=== PATIENT | female | born 1980 | race Caucasian/White ===

== ENCOUNTER 2020-08-17 13:55 | Outpatient (CLI) | payer OTHER, SELFPAY ==
--- NOTE | ~2020-08-17 | MM_ITS ---
EXAMINATION: MM screening [facility] w [facility] HISTORY: Screening TECHNIQUE: Craniocaudal and mediolateral oblique 3-D tomosynthesis images were obtained and synthetic 2-D images were generated. CAD analysis was submitted and interpreted. COMPARISON: 08/11/2019 BREAST PARENCHYMAL COMPOSITION: There are scattered areas of fibroglandular density. FINDINGS: There is no evidence of suspicious mass, calcification, or architectural distortion to sugg est malignancy in either breast. There has been no suspicious interval change. IMPRESSION: 1. No mammographic evidence of malignancy. 2. Recommend routine screening mammography in one year. BI-RADS Category 1: Negative Reviewed, dictated and finalized at location A. 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
== END 2020-08-17 13:56 | disposition home or self-care (01) ==
LOC: ANHIMG 14:03
PROVIDERS: PCP Family Medicine; Visit Provider Advanced Practice Midwife
DX: Z12.31 Encounter for screening mammogram for malignant neoplasm of breast (principal)
CPT/HCPCS: 77063; 77067

== ENCOUNTER 2021-10-31 14:06 | Outpatient (CLI) | payer OTHER, SELFPAY ==
--- NOTE | ~2021-10-31 | MM_ITS ---
EXAMINATION: MM screening [facility] BI w salima HISTORY: Screening TECHNIQUE: Craniocaudal and mediolateral oblique 3-D tomosynthesis images were obtained and synthetic 2-D images were generated. CAD analysis was submitted and interpreted. COMPARISON: Comparison to multiple prior studies sequentially, with oldest reviewed study dated 07/24. BREAST PARENCHYMAL COMPOSITION: There are scattered areas of fibroglandular density. FINDINGS: There is no evidence of suspicious mass, calcification, or architectural distortion to sugg est malignancy in either breast. There has been no suspicious interval change. IMPRESSION: 1. No mammographic evidence of malignancy. 2. Recommend routine screening mammography in one year. BI-RADS Category 1: Negative Reviewed, dictated and finalized at location A. KDOWN MAN
== END 2021-10-31 14:07 | disposition home or self-care (01) ==
PROVIDERS: PCP Family Medicine; Visit Provider Advanced Practice Midwife
DX: Z12.31 Encounter for screening mammogram for malignant neoplasm of breast (principal)
CPT/HCPCS: 77063; 77067

== ENCOUNTER 2022-07-15 14:25 | Emergency (ER) | payer BC, SELFPAY ==
[2022-07-15 14:37] VITALS: BP 129/91; PULSE 107; RESP 16; TEMP 36.6; O2SAT 99
--- NOTE | 2022-07-15 14:52 | ED.SKABFB ---
HPI - Skin/Abscess/Foreign Bdy General Chief complaint: Skin/Abscess/Foreign Body Stated complaint: rash Time Seen by Provider: 07/15/22 14:52 Source: patient Mode of arrival: ambulatory Limitations: no limitations History of Present Illness HPI narrative: 42-year-old female presented for complaint of itching all over her body worsening for 2 days. No apparent rash. She endorses changing laundry detergent however she states it was a hypoallergenic detergent. She denies lip, tongue or throat swelling, shortness of breath or wheezing. Has not taken anything for symptoms. Related Data Home Medications Medication Instructions Recorded Confirmed norethindrone (contraceptive) 0.35 0.35 mg PO DAILY 08/29/20 09/12/21 mg tablet Allergies Allergy/AdvReac Type Severity Reaction Status Date / Time No Known Allergies Allergy Verified 07/15/22 14:35 Review of Systems Review of Systems: CONSTITUTIONAL: Denies body aches, fever, chills, or sweats. EYES: Denies visual changes, redness, or discharge. ENT: Denies rhinorrhea, congestion CARDIOVASCULAR: Denies chest pain, palpitations, or edema. RESPIRATORY: Denies cough or dyspnea. GASTROINTESTINAL: Denies abdominal pain, nausea, vomiting, or diarrhea. SKIN: reports itching MUSCULOSKELETAL: Denies back pain, joint pain, or myalgia. NEUROLOGIC: Denies headache, numbness, tingling, or weakness. [facility] Past Medical History Medical History Hypertension Weight gain (~03/2019) Surgical History Surgical History [place] teeth extracted Family History Family History Father Family history of hypercholesterolemia Family history of coronary artery disease Grandparent Acute myocardial infarction Cerebrovascular accident Family history of malignant neoplasm of breast in first degree relative Mother Acute myocardial infarction Social History Social History Smoking status: Former smoker Second hand tobacco smoke exposure: No Smoking end date: 09/23/16 Alcohol intake: current Alcohol use details: consumes 3 beers socially Substance use: never Substance use type: does not use Gender identity (if verbalized by the patient): Female Comments At time of signature, I have reviewed and agree with nursing past medical, surgical, social and family history unless otherwise noted. Please see nursing chart for further information. There is no relevant family history pertinent to the presenting complaint Exam Narrative: GENERAL: Well-appearing EYES: conjunctivae clear, and EOMI. ENT: Mucous membranes moist. Oropharynx without edema, erythema or lesions. NECK: Supple. No lymphadenopathy CHEST: Clear to auscultation. HEART: Regular rate and rhythm. SKIN: Warm, dry. No apparent rash, lesions or urticaria to body. Evidence of scratching arms. NEURO: Alert and oriented x3. Course Course Emergency Course: Patient is aware of diagnosis, understands and agrees to treatment plan. Anticipatory guidance given. Patient agrees to follow-up as directed and is aware of reasons to seek care at the emergency department. Portions of this record may have been created with voice recognition software Level of Care: Express Care Visit Vital Signs Vital signs: Vital Signs Temperature 97.8 F 07/15/22 14:37 Pulse Rate 107 H 07/15/22 14:37 Respiratory Rate 16 07/15/22 14:37 Blood Pressure 129/91 H 07/15/22 14:37 Pulse Oximetry 99 07/15/22 14:37 Oxygen Delivery Room Air 07/15/22 14:37 Temperature 97.8 F 07/15/22 14:37 Pulse Rate 107 H 07/15/22 14:37 Respiratory Rate 16 07/15/22 14:37 Blood Pressure 129/91 H 07/15/22 14:37 Pulse Oximetry 99 07/15/22 14:37 Oxygen Delivery Room Air 07/15/22 14:37 Review
== END 2022-07-15 15:06 | disposition home or self-care (01) ==
PROVIDERS: Emergency Provider Nurse Practitioner Family
DX: L29.9 Pruritus, unspecified (principal); I10 Essential (primary) hypertension
CPT/HCPCS: 99213; G0463

== ENCOUNTER 2022-10-15 09:42 | Outpatient (CLI) | payer BC, SELFPAY ==
[2022-10-15 10:14] LABS: Basophils Percent Auto 0.7 % (0.2-1.2); Eosinophils Absolute Auto 0.1 K/mm3 (0-0.3); Eosinophils Percent Auto 1.6 % (0-4.4); Hematocrit 48.4 % (37.0-47.0); Hemoglobin 15.2 g/dL (12.0-15.0); Immature Granulocyte Absolute 0.02 K/mm3 (0.00-0.031); Immature Granulocyte Percent A 0.4 % (0-0.5); Immature Platelet Fraction Pct 6.2 % (0.9-11.2); Lymphocytes Absolute Auto 1.33 K/mm3 (0.9-3.2); Mean Corpuscular HGB Conc 31.4 g/dl (32-36); Mean Corpuscular Volume 101.9 fl (80-100); Mean Platelet Volume 10.7 fl (7.4-10.4); Monocytes Absolute Auto 0.3 K/mm3 (0.1-0.6); Monocytes Percent Auto 5.6 % (2.6-8.5); Neutrophils Absolute Auto 3.8 K/mm3 (1.3-6.7); Neutrophils Percent Auto 67.7 % (45.5-73.1); Platelet Count Result 157 k/mm3 (150-375); Red Blood Count 4.75 M/mm3 (4.2-5.4); Red Cell Distribution Width 13.2 % (11.5-14.5); White Blood Count 5.6 K/mm3 (4.5-10.0)
[2022-10-15 10:23] LABS: Chloride 104 mmol/L (98-107)
[2022-10-15 10:24] LABS: Alanine Aminotransferase 20 U/L (6-35); Albumin Level 4.5 g/dL (3.5-5.1); Alkaline Phosphatase 59 U/L (38-126); Anion Gap 6 mmol/L (8-16); Aspartate Amino Transferase 22 U/L (14-36); Bilirubin,Total 0.6 mg/dL (0.2-1.3); Blood Urea Nitrogen 9 mg/dL (7-17); Calcium 8.6 mg/dL (8.4-10.2); Carbon Dioxide 22 mmol/L (22-30); Cholesterol 213 mg/dL (0-200); Estimated Glomerular Filt Rate > 60; Glucose 90 mg/dL (65-110); HDL Direct 58 mg/dL; Potassium 3.9 mmol/L (3.4-5.0); Sodium 132 mmol/L (137-145); Triglycerides 133 mg/dL (<150)
[2022-10-15 10:28] LABS: INR 0.9; Prothrombin Time 11.8 Seconds (11.1-14.7)
[2022-10-15 10:35] LABS: LDL Cholesterol Direct 116 mg/dL
[2022-10-15 11:03] LABS: Free T4 Free Thyroxine 0.94 ng/mL (0.78-2.19)
== END 2022-10-15 09:43 | disposition home or self-care (01) ==
LOC: ANHLAB 09:44
PROVIDERS: PCP Family Medicine; Visit Provider Physician Assistant Medical
DX: Z00.00 Encounter for general adult medical examination without abnormal findings (principal); R53.83 Other fatigue; E78.2 Mixed hyperlipidemia; D64.9 Anemia, unspecified
CPT/HCPCS: 36415; 80053; 80061; 82607; 82746; 84439; 84443; 85025; 85055; 85610

== ENCOUNTER → 2022-11-15 13:37 | Outpatient (CLI) | payer BC, SELFPAY ==
--- NOTE | ~2022-11-15 | MM_ITS ---
EXAMINATION: MM screening [facility] w [facility] HISTORY: Screening mammogram TECHNIQUE: Craniocaudal and mediolateral oblique 3-D tomosynthesis images were obtained and synthetic 2-D images were generated. CAD analysis was submitted and interpreted. COMPARISON: October 31, 2021, August 17, 2020, August 11, 2019 bilateral screening mammogram exam inations BREAST PARENCHYMAL COMPOSITION: There are scattered areas of fibroglandular density. FINDINGS: There is no evidence of suspicious mass, calcification, or architectural distortion to sugg est malignancy in either breast. There has been no suspicious interval change. IMPRESSION: 1. No mammographic evidence of malignancy. 2. Recommend routine screening mammography in one year. BI-RADS Category 1: Negative Reviewed, dictated and finalized at location A. OR ESTIMATOR
== END ==
PROVIDERS: PCP Obstetrics & Gynecology; Visit Provider Obstetrics & Gynecology
DX: Z12.31 Encounter for screening mammogram for malignant neoplasm of breast (principal)
CPT/HCPCS: 77063; 77067

== ENCOUNTER 2023-11-22 15:46 | Outpatient (CLI) | payer BC, SELFPAY ==
--- NOTE | ~2023-11-22 | XR_ITS ---
EXAMINATION: XR humerus LT DATE: 11/22/2023 16:03 INDICATION: Pain in arm, unspecified. TECHNIQUE: 2 views of left humerus on 4 radiographs were obtained. COMPARISON: None. FINDINGS: Bone alignment is normal. No fracture. There is mild acromioclavicular joint osteoarthritis . No elbow joint effusion. IMPRESSION: 1. Mild left acromioclavicular joint osteoarthritis. Reviewed, dictated and finalized at location A. 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
== END 2023-11-22 15:47 ==
LOC: MICIMG 15:47
PROVIDERS: PCP Physician Assistant; Visit Provider Physician Assistant
DX: M19.012 Primary osteoarthritis, left shoulder (principal)
CPT/HCPCS: 73060

== ENCOUNTER 2024-01-24 12:36 | Outpatient (CLI) | payer BC, SELFPAY ==
--- NOTE | ~2024-01-24 | MM_ITS ---
EXAMINATION: MM screening [facility] w [facility] HISTORY: Screening mammogram TECHNIQUE: Craniocaudal and mediolateral oblique 3-D tomosynthesis images were obtained and synthetic 2-D images were generated. CAD analysis was submitted and interpreted. COMPARISON: November 15, 2022, October 31, 2021 bilateral screening mammogram examinations BREAST PARENCHYMAL COMPOSITION: The breasts are almost entirely fatty. FINDINGS: There is no evidence of suspicious mass, calcification, or architectural distortion to sugg est malignancy in either breast. There has been no suspicious interval change. IMPRESSION: 1. No mammographic evidence of malignancy. 2. Recommend routine screening mammography in one year. BI-RADS Category 1: Negative Reviewed, dictated and finalized at location A.
== END 2024-01-24 12:37 ==
PROVIDERS: PCP Obstetrics & Gynecology; Visit Provider Obstetrics & Gynecology
DX: Z12.31 Encounter for screening mammogram for malignant neoplasm of breast (principal)
CPT/HCPCS: 77063; 77067

== ENCOUNTER 2025-03-29 10:37 | Outpatient (CLI) | payer BC, SELFPAY ==
--- NOTE | ~2025-03-29 | MM_ITS ---
EXAMINATION: MM screening sherrell BI w salima HISTORY: Screening TECHNIQUE: Craniocaudal and mediolateral oblique 3-D tomosynthesis images were obtained and synthetic 2-D images were generated. CAD analysis was submitted and interpreted. COMPARISON: Comparison to multiple prior studies sequentially, with oldest reviewed study dated 07/24. BREAST PARENCHYMAL COMPOSITION: Not dense: There are scattered areas of fibroglandular density. FINDINGS: There is a developing focal asymmetry medially in the right breast on CC view only. The lef t breast is stable without evidence for malignancy. IMPRESSION: 1. Developing focal right breast asymmetry medially, middle third, on CC view. 2. Additional mammographic views and possible breast ultrasound are recommended. BI-RADS Category 0: Incomplete: Needs additional imaging evaluation. Reviewed, dictated and finalized at location A. IMPRESSION: 1. Developing focal right breast asymmetry medially, middle third, on CC view. 2. Additional mammographic views and possible breast ultrasound are recommended . BI-RADS Category 0: Incomplete: Needs additional imaging evaluation.
--- OUTSIDE RECORDS SUMMARY | 2025-03-29 10:51 | XMS_ITS | Data Portability ---
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 Patient will come back in a year unless there are new symptoms. [email or web address] Not available 03/06/2024 14:01:35 Plan of Treatment Reminders Order Date Submit Date Provider Last Modified By Organization Details Last Modified Time Details Appointments [facility]AN-EST 2024 09:15A M HIPOLITO ROJAS NP Not available Not available Not available Lab test, urine 2024 025 [email or web address], [address], [place], [address], 02/17/2025 09:44:09 hormone panel, serum or plasma 2024 025 ROBYN [facility] (Lab), [address], [place], [address], 03/16/2025 04:01:13 25-hydrox yvitamin D2 + 25-hydrox yvitamin D3, QN, serum or plasma [email or web address] (Lab), [address], [place], [address], 02/26/2025 16:46:02 TSH, serum or plasma 2024 025 [facility] (Lab), [address] [facility], [place], [address], 03/16/2025 04:01:13 CBC w/ auto diff [address] (Lab), [address] [facility], [place], [address], 02/26/2025 16:46:03 vitamin B12 + folate, serum or blood [address] (Lab), [address] [facility], [place], [address], 02/26/2025 16:46:03 Referral None recorded. Procedures None recorded. Surgeries None recorded. Imaging None recorded. Medication Orders Mirena 21 mcg/24 hr (up to 8 years) 52 mg intrauter ine device 2024 025 [email or web address] Not available 02/17/2025 20:04:23 norethind nixon (contrace ptive) 0.35 mg tablet 2023 025 [id number], [address] [facility], [place], [place], [id number], 02/17/2025 09:59:34 Patient TargetsNo targets recorded. Patient InstructionsNo instructions recorded. Reason for Referral None Reported. 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 Elect francia york by Perez Aguilera MD on 2023 at 1:54 PM ----- ----- ----- ----- ----- ----- ----- ----- ----- ----- ----- ----- ----- ----- ----- ----- ----- ---- HPV RESUL TS: HPV mRNA E6/E7 : No HPV mRNA Detec ana m NOTE: This high risk HPV mRNA assay detec ts fourt een high- risk HPV types (16, 18, 31, 33, 35, 39, 45, 51, 52, 56, 58, 59, 66, 68) witho ut diffe renti ation . COMME NT: This speci men was revie wed by a Cytot echno logis t and/o r Patho logis t (as indic ated in this repor t) after evalu ation using the Thinp rep Imagi ng Syste m. CLINI SHONDA INFOR MATIO N: Menst rual Statu s: LMP (if appli cable ): Clini shonda Histo ry/Pr eviou s Pap: Type of Neopl preeti (if appli cable ): Signi fican t Clini shonda Findi ngs: Other Histo ry: Hormo rubi (if appli cable ): SUGGE STED FOLLO W-UP: Follo w up as warra nted, based on curre nt guide lines and indiv idual patie nt consi derat ions. Not Available [facility] (Lab) [address], [place], [address], 03/11/2024 14:58:24 04/13/20 24 04/15/2024 CERVI X/END OCERV IX cervical histology Negati ve normal Not Available [facility] ([facility]) [address] , [place], [address], 04/15/2024 12:40:11 04/13/20 24 04/15/2024 CERVI X/END OCERV IX endocervical brushing histology Negati ve normal Not Available [facility] ([facility]) [address] , [place], [address], 04/15/2024 12:40:11 04/13/20 24 04/15/2024 CERVI X/END OCERV IX results (B1) CERVI X GROSS ING INFOR MATIO N: Recei geo in forma shweta on a soft biops y brush is a 0.4 cm aggre gate of clear -to-m ilky mucoi d/fib rinou s mater ial. Speci men is filte red and total ly submi tted. B1 DIAGN OSIS: Benig n ectoc ervic al tissu e. Trans forma tion zone mucos a not prese nt. No intra epith elial lesio n. UNSP ABNOR MAL CYTOL OG FINDI NGS IN SPECM N FROM CERVI X UTERI (R87. 619) (A1) ENDOC ERVIX GROSS ING INFOR MATIO N: Recei geo in forma shweta on a soft ecc brush is a 0.4 cm [address] gate of pink- tinge d mucoi d/fib rinou s mater ial. Speci men is filte red and total ly submi tted. A1 DIAGN OSIS: Scant tiny strip s of benig n ectoc ervic al tissu e. Trans forma tion zone mucos a not prese nt. No intra epith elial lesio n in this sampl ing. UNSP ABNOR MAL CYTOL OG FINDI NGS IN SPECM N FROM CERVI X UTERI (R87. 619) Not Available [facility] ([facility]) [address], [place], [address], 04/15/2024 12:40:11 04/20/20 24 04/20/2024 DHEA SULFA TE DHEA-sulfate 165 ug/dL Femal e Range s Age(y ) Range (ug/d L) 10-15 34-28 0 15-20 65-36 8 20-25 148-4 07 25-35 99-34 0 35-45 61-33 7 45-55 35-25 6 55-65 19-20 5 65-75 9-246 > 75 12-15 4 Not Available [facility] (Lab) [address] [facility], [place], [address], 04/26/2024 11:48:32 04/20/20 24 04/20/2024 PROGE STERO NE progesterone 0.23 NG/mL This assay was perfo rmed using [employer] ratio n reage nts and test kits. Value s obtai puma with other assay metho ds or kits canno t be used inter morales eably . Femal e Proge stero ne Range s: Folli cular phasE 0.06- 0.89 ng/mL Ovula tion phasE 0.12- 12.00 ng/mL Lutea l phasE 1.83- 23.90 ng/mL Postm enopa usal <0.05 -0.13 ng/mL Healt hy Pregn ant Women 1st Trime ster 11.0- 44.30 2nd Trime ster 25.40 -83.3 0 3rd Trime ster 58.70 -214. 00 Not Available [facility] (Lab) [address] [facility], [place], [address], 04/26/2024 11:48:33 04/20/20 24 04/20/2024 PROLA CTIN prolactin, total 14.10 NG/mL 4.79-2 3.30 This assay was perfo rmed using [employer] reage nts and test kits. Value s obtai puma with other assay metho ds or kits canno t be used inter [facility] . Not Available [facility] (Lab) [address] [place], [address], 04/26/2024 11:48:33 04/20/20 24 04/20/2024 FSH, LH, ESTRA DIOL estradiol 44.5 pg/mL This assay was perfo rmed using [employer] reage nts and test kits. Value s obtai puma with other assay metho ds or kits canno t be used inter [facility] . Femal e Estra diol Range s: Folli cular phasE 12.4- 233 pg/mL Ovula tion phasE 41.0- 398 pg/mL Lutea l phasE 22.3- 341 pg/mL Postm enopa usal <5-13 8 pg/mL Healt hy Pregn ant Women 1st Trime ster 154-3 243 pg/mL 2nd Trime ster 1561- 87661 pg/mL 3rd Trime ster 8525- >3000 0 pg/mL Not Available [facility] (Lab) [address] [place], [address], 04/26/2024 11:48:34 04/20/20 24 04/20/2024 FSH, LH, ESTRA DIOL FSH 15.1 mIU/m L This assay was perfo rmed using [employer] reage nts and test kits. Value s obtai puma with other assay metho ds or kits canno t be used inter [facility] . Femal es Folli cular : 3.5-1 2.5 mIU/m L Ovula tion: 4.7-2 1.5 mIU/m L Lutea l: 1.7-7 .7 mIU/m L Postm enopa use: 25.8- 134.8 mIU/m L Not Available [facility] (Lab) [address] [place], [address], 04/26/2024 11:48:34 04/20/20 24 04/20/2024 FSH, LH, ESTRA DIOL LH 7.6 mIU/m L This assay was perfo rmed using [employer] reage nts and test kits. Value s obtai puma with other assay metho ds or kits canno t be used inter morales eably . Femal es Mid-F ollic ular: 2.4-1 2.6 mIU/m L Mid-C ycle: 14.0- 95.6 mIU/m L Mid-L uteal : 1.0-1 1.4 mIU/m L Postm enopa use: 7.7-5 8.5 mIU/m L Not Available [facility] (Lab) [address] [facility], [place], [address], 04/26/2024 11:48:34 04/20/20 24 04/20/2024 TSH, REFLE X FREE T4 TSH 3.22 uIU/m L 0.30-5 .33 Not Available [facility] (Lab) [address] [facility], [place], [address], 04/26/2024 11:48:34 04/20/20 24 04/20/2024 HUMAN SEX HORMO NE JAMES NG GLOBU SHWETA sex hormone binding globulin 35.1 nmole s/L 18.2-1 35.5 Not Available [facility] (Lab) [address] [place], [address], 04/26/2024 11:48:34 04/20/20 24 04/20/2024 TESTO STERO NE, TOTAL AND FREE, SERUM (LC-M S/MS) testosterone , total 18 NG/dL 2-45 For addit ional marichuy baldwin e refer to http: //gail cortes.que stdia gnost ics.c om/fa q/ Total Testo stero neLCM SMSFA Q165 (This link is being provi ded for festus myers/ educa afia l purpo ses only. ) This test was devel oped and its mayda tical perfo rmanc e chary cteri stics have been deter mined by [employer] [place]. It has not been clear ed or appro geo by the U.S. Food and Drug Admin istra tion. This assay has been valid ated pursu ant to the CLIA regul ation s and is used for clini shonda purpo ses. Not Available [facility] (Lab) [address] [facility], [place], [address], 04/26/2024 11:48:35 04/20/20 24 04/20/2024 TESTO STERO NE, TOTAL AND FREE, SERUM (LC-M S/MS) testosterone , free 2.6 pg/mL 0.1-6. 4 This test was devel oped and its mayda tical perfo rmanc e chary cteri stics have been deter mined by [employer] [place]. It has not been clear ed or appro geo by the U.S. Food and Drug Admin istra tion. This assay has been valid ated pursu ant to the CLIA regul ation s and is used for clini shonda purpo ses. Perfo rming Organ izati on Infor matio n: Site ID: AMD Name: [employer] Steve ls Loyalisi ginaolesya Addre ss: [id number] [facility] [employer] [place], [place] Direc tor: Kathia Guy MD PhD Not Available [facility] (Lab) [address] [facility], [place], [address], 04/26/2024 11:48:35 02/18/20 25 02/17/2025 pregn ko test, urine HCG negati ve Not Available [address] [place], [address], 02/17/2025 09:44:02 Result Notes None recorded. Problems Name Problem SNOMED Code Status Onset Date Resolution Date Notes Provider Name and Address Organization Details Recorded Time History of abnormal cervical Papanico laou smear 278314479 Completed 201909/20/20212012 lgsil/ colpo cin3 Shwetha ward, [facility] 16:45:55 Hypothyr oidism 41891154 Active 2019 Rita Streeter [facility], [facility] 0 17:36:10 Genital warts 995897540 Active 2019 Rita Streeter [facility], [facility] 0 17:36:27 Urinary tract infectio us disease 07640403 Completed 201209/20/2021 Urinary tract infectio n, site not specifie d;Practi ce ID: 0001 [facility] 16:45:43 Family planning surveill ance Completed 201309/20/2021 Surveill ance of other contrace ptive method;P ractice ID: 0001 [facility] 16:45:22 Speciali zed medical examinat ion Completed 201309/20/2021 Routine gynecolo gical examinat ion;Prac malissa ID: 0001 [facility] 16:45:40 Speciali zed medical examinat ion Completed 201309/20/2021 Other specifie d chlamydi al diseases ;Practic e ID: 0001 [facility] 16:45:41 Venereal disease screenin g Completed 201309/20/2021 Screenin g examinat ion for venereal disease; Practice ID: 0001 [facility] 16:45:01 Screenin g for malignan t neoplasm of cervix Completed 201309/20/2021 Pap Smear;Pr actice ID: 0001 Shwetha ward [facility] 16:45:04 Abnormal cervical Papanico laou smear 038565634 Completed 201409/20/2021 Other abnormal papanico laou smear of cervix and cervical HPV;Prac malissa ID: 0001 Shwetha ward [facility] 16:45:[address] Concept Completed 201509/20/2021 Encntr for gel coater exam (general ) (routine ) w/o abn findings ;Practic e ID: 0001 Shwetha ward [facility] 16:45:18 Pregnanc y test negative 237085918 Completed 201509/20/2021 Encounte r for pregnanc y test, result negative ;Practic e ID: 0001 [facility] 16:45:10 Atypical squamous cells of undeterm ined signific ance on cervical Papanico laou smear 552235619 Active 2016 [facility] 16:45:33 Benign neoplasm of vulva 95398481 Completed 201609/20/2021 Benign neoplasm of vulva;Pr actice ID: 0001 Shwetha ward [facility] 16:45:45 Actinic keratosi s 306234534 Completed 201609/20/2021 Actinic keratosi s;Practi ce ID: 0001 Shwetha Neumann [facility] 16:45:05 Screenin g for malignan t neoplasm of rectum Completed 201809/20/2021 Encounte r for screenin g for malignan t neoplasm of rectum;P ractice ID: 0001 Shwetha ward [facility] 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 16:44:53 Body mass index 25-29 - overweig ht 012860908 Completed 201809/20/2021 Body mass index (BMI) 29.0-29. 9, adult;Re corded Elsewher e: No Locat ion: [facility] S ource: EHR Hoop Punch Operator Helper negin: N Practi ce ID: 0001 Dustin lable Time: 02:30:00 PM Shwetha ward [facility] 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 16:45:48 Ill-defi puma intestin al infectio n Completed 201009/20/2021 No Show Fee;Loida malissa ID: 0001 Shwetha ward, [facility] 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 16:44:59 Cytologi c finding 606085676 Completed 201209/20/2021 Papanico laou smear of cervix with low grade squamous intraepi thelial lesion (LGSIL); Recorded Elsewher e: No Locat ion: [facility] S ource: EHR Hoop Punch Operator Helper negin: N Practi ce ID: 0001 Dustin lable Time: 02:00:00 PM [facility] 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 16:45:53 Hyperten sive disorder 50754649 Completed 201809/20/2021 Essentia l (primary ) hyperten jcarlos;Rec orded Elsewher e: No [facility]: EHR Hoop Punch Operator Helper negin: N Practi ce ID: 0001 Dustin lable Time: 02:30:00 PM Shwetha ward [facility] 16:45:20 Conducti on disorder of the heart 27498304 Completed 201309/20/2021 Bradycar raymundo;Andrew rded Elsewher e: No [facility] S [facility]ce: EHR Hoop Punch Operator Helper negin: N Practi ce ID: 0001 Dustin lable Time: 02:55:10 PM Shwetha Neumann [facility] 16:45:36 Syphilis test finding 614796357 Completed 201509/20/2021 Encntr screen for infectio ns w sexl mode of transmis s;Record ed Elsewher e: No [facility] S [facility]: EHR Hoop Punch Operator Helper negin: N Practi ce ID: 0001 Dustin lable Time: 11:30:00 AM Shwetha ward [facility] 16:45:[address] Concept Completed 201809/20/2021 Encntr for general adult medical exam w/o abnormal findings ;Recorde d Elsewher e: No Locat ion: Susan dacosta [facility] S ource: EHR Hoop Punch Operator Helper negin: N Practi ce ID: 0001 Dustin lable Time: 02:30:00 PM Shwetha ward, [facility] 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 16:45:49 Problem Notes None recorded. Procedures Surgical History Date Name Laterality Status Provider Name and Address Organization Details Recorded Time 02/18/20 25 IUD Insertion completed HIPOLITO ROJAS NP [address], [place], [address], [facility] 02/17/2025 09:56:26 04/14/20 24 [facility] 03/29/2025 10:24:58 04/10/20 24 Colposcopy completed ORIN LIZARRAGA MD [address], [place], [address], [facility] 04/10/2024 16:18:06 03/06/20 24 Date of Last Pap Smear completed Bonnie Latif [facility] 02/16/2025 15:08:04 10/15/19 23 Colposcopy completed Nadeen Wilson MD [address], [place], [address], [facility] 10/15/2022 16:22:07 07/05/20 17 biopsy of vulva completed Rita Streeter [facility] 08/15/2020 17:45:25 12/16/19 13 Colposcopy completed Rita Streeter [facility] 08/15/2020 17:45:08 09/23/19 13 LEEP completed Rita Streeter [facility] 08/15/2020 17:44:25 Imaging Results None recorded. Procedure Notes None recorded. Medical Equipment None Reported. Allergies No known drug allergies Medications Name Sig Start Date Stop Date Status Note LastModified by Organization Details LastModified Time cyclobenz aprine 10 mg tablet TAKE 1 TABLET BY MOUTH THREE TIMES DAILY NEEDED FOR MUSCLE SPASM 02/16 completed Not Available Not Available Not Available Mirena 21 mcg/24 hr (up to 8 years) 52 mg intrauter ine device Take 1 device by intraute rine route. 2024 active Not Available Not Available Not Avai lable azithromy jonah 250 mg tablet 09/20 completed Not Available Not Available Not Available cephalexi n 250 mg capsule TAKE 1 CAPSULE BY MOUTH EVERY 6 HOURS 02/16 completed Not Available Not Available Not Available Nystop 100,000 unit/gram topical powder APPLY EXTERNAL LY TO THE AFFECTED AREA TWICE DAILY 02/16 completed Not Available Not Available Not Available meloxicam 15 mg tablet TAKE 1 TABLET BY MOUTH DAILY 02/16 completed Not Available Not Available Not Available prednison e 20 mg tablet TAKE 2 TABLETS BY MOUTH DAILY FOR 5 DAYS 08/27 completed Not Available Not Available Not Available phentermi ne 15 mg capsule TAKE 1 CAPSULE BY MOUTH DAILY 02/16 completed Not Available Not Available Not Available penicilli n V potassium 500 mg tablet TAKE 1 TABLET BY MOUTH EVERY 6 HOURS FOR 7 DAYS 08/27 completed Not Available Not Available Not Available amlodipin e 2.5 mg tablet TAKE 1 TABLET BY MOUTH DAILY 03/29 completed Not Available Not Available Not Available Macrobid 100 mg capsule take 1 capsule (100MG) by oral route every 12 hours with food 07/29 completed Prescrib shady Cavanaugh e: No Locat ion: [facility] M odyoni By: christie camargo DateTime : 07/20/20 13 10:51:44 AM Not Available Not Available Not Available hydrocort isone 2.5 % topical cream with perineal applicato r APPLY RECTALLY TO THE AFFECTED AREA EVERY DAY AT BEDTIME NEEDED FOR HEMORRHO IDS 02/16 completed Not Available Not Available Not Available amoxicill in 875 mg tablet TAKE 1 TABLET BY MOUTH TWICE DAILY UNTIL ALL TAKEN 02/16 completed Not Available Not Available Not Available Metrogel Vaginal 0.75 % (37.5 mg/5 gram) insert 1 applicat orful by vaginal route every day at bedtime for 5 nights 06/01 completed Prescrib ed Elsewher e: No Locat ion: [facility] odify By: cmedical Encount er DateTime : 05/26/20 14 11:17:16 AM Not Available Not Available Not Available Flagyl 500 mg tablet take 1 tablet by oral route every 12 hours 06/10 completed Prescrib ed Elsewher e: No Locat ion: [facility] odify By: bchappel l Encoun ter DateTime : 06/01/20 14 01:40:27 PM Not Available Not Available Not Available nystatin 100,000 unit/gram topical cream APPLY TO THE AFFECTED AREA(S) BY TOPICAL ROUTE 2 TIMES PER DAY 2024 active Not Available Not Available Not Avai lable lisinopri l 10 mg tablet TAKE 1 TABLET BY MOUTH DAILY 04/03 completed Not Available Not Available Not Available Aldara 5 % topical cream packet apply by topical route 5 times every week to the affected area(s) 03/31 completed Prescrib ed Elsewher e: No Locat ion: [facility] odify By: [email or web address] Encount er DateTime : 07/09/20 17 04:02:08 PM Not Available Not Available Not Available lisinopri l 5 mg tablet TAKE 1 TABLET BY MOUTH DAILY active Not Available Not Available No t Available methylpre dnisolone 4 mg tablets in a dose pack FOLLOW PACKAGE DIRECTIO NS 02/16 completed Not Available Not Available Not Available norethind nixon (contrace ptive) 0.35 mg tablet TAKE 1 TABLET BY MOUTH EVERY DAY 02/17 completed Not Available Not Available Not Available Bactrim DS 800 mg-160 mg tablet take 1 tablet by oral route every 12 hours 08/02 completed Prescrib ed Elsewher e: No Locat ion: [facility] odify By: christie camargo DateTime : 07/24/20 13 12:54:15 PM Not Available Not Available Not Available Microgest in Fe 1.02/19 (28) 1.5 mg-30 mcg (21)/75 mg (7) tablet TAKE 1 TABLET BY ORAL ROUTE EVERY DAY 03/31 completed Prescrib ed Elsewher e: No Locat ion: [facility] Modify By: hira Dacosta ncounter DateTime : 12/14/19 19 01:25:50 PM Not Available Not Available Not Available Microgest in 10/12 (21) 1 mg-20 mcg tablet take 1 tablet by oral route every day 06/10 completed Prescrib ed Elsewher e: No Locat ion: [facility] M odify By: sarah scott DateTime : 06/06/20 15 09:07:22 AM Not Available Not Available Not Available emtricita bine 200 mg-tenofo vir disoproxi l fumarate 300 mg tablet TAKE 1 TABLET BY MOUTH DAILY 09/25 completed Not Available Not Available Not Available Loestrin 24 Fe 1 mg-20 mcg (24)/75 mg (4) tablet take 1 tablet by oral route every day 02/24 completed Prescrib ed Elsewher e: No Locat ion: [facility] odify By: cmedical Encount er DateTime : 11/13/19 13 12:00:00 PM Not Available Not Available Not Available Isentress 400 mg tablet 09/25 completed Not Available Not Available Not Available ID NOW COVID-19 Test Kit TEST DIRECTED TODAY 10/15 completed Not Available Not Available Not Available Vitals Date Recorded Body height Body mass index (BMI) Body weight Systolic And Diastolic Provider Name and Address Organization Details Last Updated DateTime 02/16/2025 172.72 cm 28.8 kg/m2 76805.39 g 154/100 mm[Hg] Bonnie Latif [facility] 02/16/2025 15:14:21 Date Recorded Body height Body mass index (BMI) Body weight Systolic And Diastolic Systolic And Diastolic Provider Name and Address Organization Details Last Updated DateTime 02/17/2025 172.72 cm 28.1 kg/m2 90178.59 g 158/121 mm[Hg] 154/105 mm[Hg] Lillie Frankeler [facility] 09:35:00 Date Recorded Systolic And Diastolic Provider Name and Address Organization Details Last Updated DateTime 03/06/2024 130/84 mm[Hg] Lizet Leigh, [facility]- [address], [place], [address], [facility] 03/06/2024 14:19:01 Date Recorded Body height Body mass index (BMI) Body weight Provider Name and Address Organization Details Last Updated DateTime 03/06/2024 172.72 cm 29.1 kg/m2 14322.3 g Alicia Ocampo [facility] 03/06/2024 14:02:50 Date Recorded Body height Body mass index (BMI) Body weight Systolic And Diastolic Provider Name and Address Organization Details Last Updated DateTime 03/29/2025 172.72 cm 28 kg/m2 75753 g 135/101 mm[Hg] Bonnie Bhavya [facility] 03/29/2025 10:16:01 Date Recorded Body height Body mass index (BMI) Body weight Systolic And Diastolic Provider Name and Address Organization Details Last Updated DateTime 04/10/2024 172.72 cm 29.3 kg/m2 43634.61 g 142/87 mm[Hg] Tara Betts [facility] 04/10/2024 15:33:53 Social History Question Answer Notes LastModified by Organizat ion Details LastModified Time Tobacco Smoking Status Former Smoker Rita ward, [facility] 08/15/2020 17:43:52 In The 14 Days Before Symptom Onset, Have You Had Close Contact With A Laboratory-confirm ed COVID-19 While That Case Was Ill? No Information n ot available 09/06/2023 In The 14 Days Before Symptom Onset, Have You Had Close Contact With A Person Who Is Under Investigation For COVID-19 While That Person Was Ill? No Information not available 09/06/2023 Have You Been To An Area Known To Be High Risk For COVID-19? No Information not available 09/06/2023 What Was The Date Of Your Most Recent Tobacco Screening? 08/15/2020 [email or web address] Information not available 08/15/2020 How Much Tobacco Do You Smoke? No [email or web address] Information not available 08/15/2020 Sex: Unknown Functional Status Question Answer Note LastModified by Organizat ion Details LastModified Time What is your level of alcohol consumption? Occasional Information not available 08/15/2020 Do you or have you ever used smokeless tobacco? Never used smokeless tobacco [email or web address] Information not available 08/15/2020 Do you or have you ever used e-cigarettes or vape? Never used electronic cigarettes [email or web address] Information not available 08/15/2020 What is your exercise level? Occasional [email or web address] Information not available 08/15/2020 Mental Status None recorded. Family History Relationship Description Onset Age of this Age Resolved Age Notes LastModified by Organization Details LastModified Time Paternal Grandfather Heart disease [email or web address] Not available 08/15 17:43:11 Paternal Grandfather Cerebrovascu lar accident Not available 17:43:22 Paternal Grandmother Malignant tumor of breast [email or web address] Not available 08/15 17:43:31 Mother Malignant tumor of cervix [email or web address] Not available 08/15 17:43:48 Notes:08/29/2020 Cancer risk form complete Medical History Condition Response History of STI Y Other Y History of abnormal pap Y Cancer Thyroid Problems Y Gynecological History Statement/Question Response Abnormal Pap Yes Date of Last Mammogram Flow Light Date of LMP Was last menstrual period normal N STIs/STDs Yes HPV Vaccine N Colposcopy 04/14/2024 Current Control Method IUD Are cycles usually normal Y Sexually Active? Y Menses Monthly Y Age of first menstrual cycle 12 Date of Last Pap Smear 03/06/2024 Sexual Problems? N Desired Control Method IUD LMP Definite Obstetrics History GPAL:G 1 P 0 0 1 0 Type Value Induced 1 Total 1 Past Encounters Encounter ID Performer Location Encounter Start Date Encounter Closed Date Diagnosis/Indication Diagnosis SNOMED-CT Code Diagnosis ICD10 Code Diagnosis Note [id number] Laura Christiansen CNM [facility] [address],[facility] [place] [address] 08/15/2020 17:18:51 08/16/2020 14:03:44 Gynecologic examination 74701968 Z01.419 Take Calcium with Vitamin D 12-1500mg daily. Do monthly self breast exams. It is advised to get annual flu shot in the fall and she could obtain at [facility] or [facility]. If you haven't received the Tdap vaccine in the last 10 years you should obtain one as well. Have mammogram yearly, bone density every 2-3 years and colonoscop y every 5-10 years depending on findings and history. Engage in daily exercise of low impact aerobic exercise 45-60 minutes 4-5 times weekly. Avoid tobacco and illicit drugs as well as using moderation with alcohol intake less than 1-2 8 oz beverages daily. This lifestyle behavior pattern will lead to less health conditions and longer life span. If BMI greater than 25 weight watchers or dietary consult advised. Pt states history of hypothyroi dism. No labs recently. Will check tsh. Pt desires STD screen from pap. Questions have been answered. Patient appears to understand instructio ns, but if you have any further questions call or respond to this email. Elevated blood-pressure reading without diagnosis of hypertension 849856137 R03.0 Discussed hypertensi on and risks if untreated. Encouraged heart healthy diet and exercise and getting establishe d with pcp for further evaluation . [id number] Laura Christiansen CNM [facility] [address] [address] 09/25/2021 11:01:09 09/25/2021 11:47:20 Gynecologic examination 01487921 Z01.419 Z11.51 Take Calcium with Vitamin D 12-1500mg daily. Do monthly self breast exams. It is advised to get annual flu shot in the fall and she could obtain at [facility] or [facility]. If you haven't received the Tdap vaccine in the last 10 years you should obtain one as well. Have mammogram yearly, bone density every 2-3 years and colonoscop y every 5-10 years depending on findings and history. Engage in daily exercise of low impact aerobic exercise 45-60 minutes 4-5 times weekly. Avoid tobacco and illicit drugs as well as using moderation with alcohol intake less than 1-2 8 oz beverages daily. This lifestyle behavior pattern will lead to less health conditions and longer life span. If BMI greater than 25 weight watchers or dietary consult advised. Pt desires STD screen from pap. Questions have been answered. Patient appears to understand instructio ns, but if you have any further questions call or respond to this email. [id number] Nadeen Wilson MD [facility] [address],[facility] [place] [address] 08/27/2022 11:43:58 08/27/2022 14:12:18 Gynecologic examination 11028921 Z01.419 Surveillan ce of oral contraception 932455402 Z30.41 Venereal d isease screening 080645543 Z11.3 Tobacco user 332250105 Z 72.0 [id number] Nadeen Wilson MD [facility] [address],[facility] [place] [address] 10/15/2022 15:44:12 10/15/2022 17:23:31 Screening procedure 22221309 Z13.9 Low grade squamous intraepithelial lesion on cervical Papanicolaou smear 6552898359 9105 R87.612 [id number] IFRAH Hughes [facility] [address],[facility] [place] [address] 04/03/2023 14:39:00 04/03/2023 15:32:37 Screening for malignant neoplasm of cervix 255818015 Z12.4 Repeat pap collected todaySTI testing added to papDiscuss ed BTB on POP, encouraged to take pills at same time daily and track periods over the next 3 months. she would like updated u/s - orderedUPT declinedBP precaution s discussed Time spent in visit is a total of 25 mins with at least 50% of visit consisting of counseling and review of plan of care. History of loop electrosurgical excision procedure 9988834596 9102 Z98.890 History of abnormal cervical Papanicolaou smear 192800497 Z87.42 Break-thro ugh bleeding 82317145 N92.1 Venereal d isease screening 340877026 Z11.3 [id number] Ian Stern MD [facility] [address],[place] [address] 04/23/2023 14:50:09 04/23/2023 15:31:47 Abnormal uterine bleeding 6544685315 9100 N93.9 [id number] Lizet Leigh , [facility] [address],[place] [address] 09/06/2023 13:44:48 09/06/2023 14:59:01 Human papillomavirus deoxyribonucleic acid detected, high risk on cervical specimen 649682338 R87.810 Here today for q6mos pap/hpv testing from [facility] pap/hpv/co lposcopy.S nelly Willard complaints . Time spent in visit is a total of 11 mins with at least 50% of visit consisting of counseling and review of plan of care. [id number] Lizet Leigh , [facility] [address],[place] [address] 03/06/2024 13:53:43 03/06/2024 14:22:34 Gynecologic examination 73401901 Z01.419 Z11.51 Suggested Calcium with Vitamin D 1200-1500m g daily. Patient advised to get an annual flu shot in the fall and she could obtain at [facility] or [facility] clinic. Also to obtain TDap vaccinatio n if you have not had one in the last 10 years. Recommend yearly mammograms . Encouraged monthly self breast exams. Encourage safe sexual practices, to use condoms and limit partners if not already in a monogamous relationsh ip. Engage in daily exercise of low impact aerobic exercise 45-60 minutes 4-5 times weekly. Avoid tobacco and illicit drugs as well as using moderation with alcohol intake less than 1-2 8 oz beverages daily. This lifestyle behavior pattern will lead to less health conditions and longer life span. If BMI greater than 25 weight watchers or dietary consult advised. All questions have been answered. 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 Menopausal symptom 49245 002 N95.1 Reviewed self-help strategies (dietary changes/ex ercise/acu puncture/e tc.), herbal and other OTC therapies, hormonal options as well as other medication s (low-dose SSRIs, Veozah) used to treat common menopausal symptoms. Patient desires to consider these options.Wi ll assess hormone labs today. Irregular periods 193624 07 N92.6 Today we discussed multiple options for irregular menstruati on. We discussed if any are contraindi cated with her current health Hx.Discuss ed that with her hx of HTN, a progestero ne-only method would be more safe.Patie nt reports being interested in Mirena IUD.Discus sed the risks, benefits, and alternativ es to Mirena IUD. Discussed insertion and removal process. Discussed bleeding profile. Questions answered. Will schedule insertion with menses. Essential hypertension 05225423 I10 Discussed elevated BP readings today.Payton ent has hx of HTN.Pt denied SOB, chest pain, dizziness, palpitatio ns, severe headache. Discussed that if pt experience s these symptoms with elevated BP then she needs to go to the ER.Patient to call PCP today and f/u with PCP regarding elevated BP readings.C ontinue taking amlodipine as prescribed until PCP appt.Pt verbalized understand ing. [id number] Ian Stern MD [facility] [address] [address] 02/17/2025 09:20:08 02/17/2025 10:08:57 Insertion of intrauterine contraceptive device 15137243 Z30.430 She has been counseled on all of the r/b/a of placement of an intrauteri ne device that include but are not limited to uterine perforatio n, injury to cervix, vagina, bladder, and bowel.Risk s of bleeding due to injury or increased irregular bleeding due to progestin effect of the device. Risks of infection would be increased within the first 21 days of placement with concomitan t cervicitis . She understand s that the device will need to be removed in this instance due to increased risk of Pelvic inflammato ry disease. Patient is aware she is at higher risk for STD and if contracted she could lose her fertility. Pt is aware that if occurs that she should contact office immediatel y to rule out ectopic which could be life threatenin g. IUD will also need to be removed and this could cause miscarriag e. Patient also informed that in the event her strings are absent or embedded at the time of removal she may need to have the IUD surgically removed. She was informed of the above and properly consented. Mirena IUD placed w/o complicati on. Patient should return to office after 4-6 weeks to check for string placement. Patient to expect irregular bleeding but should be seen in the ED if bleeding increases to soaking a pad an hour for at least 2 hours. She verbalized understand ing. Health Concerns Section Related Observation LastModified by Organization Detai ls LastModified Time None Recorded Concern Status LastModified by Organization Details LastModified Time None Recorded Advance Directives Directive None Recorded Payers Insurance Date Sequence Insurance Name Policy Number Policy Baumann Covered Member ID Baumann Member ID Guarantor Name 11/15/2023 PAYMENT PLAN Dinorah B Franzoi 10/28/2024 1 [facility] [id number] Dinorah B Franzoi [id number] Dinorah B Franzoi 03/26/[address] [facility] [id number] Dinorah B Franzoi [id number] 30 Dinorah B Franzoi 11/14/2023 PAYMENT PLAN Dinorah B Franzoi 05/28/2023 PAYMENT PLAN Dinorah B Franzoi Notes Date Note Type Note Provider Name and Address Organization Details Recorded Time 03/06/2024 text/html Annual GYNReport ed bypatient.History:no gynecologic complaints Menstrual cycle:Normal menses (Light menses on POP) Urinary symptoms:No hematuria; No incontinence Vulva:No genital lesion Vagina:Normal vaginal discharge Breast:No breast pain; No breast lump; No nipple discharge Current Contraception:Satisf ied with current contraception; Oral contraceptives Sexual complaints:No sexual complaints; No pain during intercourse; Normal libido Menopausal Symptoms:No menopausal symptoms; Normal vaginal lubrication Psychological symptoms:No depression; No anxiety; No PMDD Preventive measures:Encourage self breast examination; Encourage regular exercise; Encourage no tobacco use; Encourage regular mammograms starting age 40; Followed with yearly pap smears; History of abnormal pap smear/cervical dysplasia; Mammogram performed within the past year Lizet Leigh [facility] [address], [place], [address], [facility] 03/06/2024 14:20:10 04/10/2024 text/html Patient presents for colposcopy indicated for LSIL on pap, negative HPV. Hx of LEEP for CIN3 in 2012. ORIN LIZARRAGA MD [address], [place], [address], [facility] 04/10/2024 16:18:58 02/16/2025 text/html 45 y/o female presents with c/o worsening mood swings, fatigue, and hot flashes x several months.Patient reports that she has been taking norethindrone 0.35 mg pills for several years for BC, and reports that she has 1-2 periods per month. HIPOLITO ROJAS NP [address], [place], [address], [facility] 02/16/2025 16:39:54 02/17/2025 text/html Patient presents for Mirena IUD insertion.Risks/bene fits/AEs reviewed.Informed consent obtained.UPT negative. HIPOLITO ROJAS NP [address], [place], [address], [facility] 02/17/2025 10:00:14 OBGyn Episode Ob Episode Information Episode Created Date Number of Fetuses Patient Bloodtype Patient rh Status Prepregnancy Weight lbs Domestic Partner Domestic Partner Phone Father Name Master Police Detective Status 08/15/20 20 1 CLOSED Fetus Data First Name Last Name Admitted to NICU Weight (g) Sex Living Outcome Pediatric Complications Fetus ID Race Codes Race Delivery Type , Induced [id number] Garrett Calculation Initial Garrett Date Initial Exam Date Initial Exam Provider Initial Ultrasound Date Last Menstrual Period Date Ultra Sound Weeks Gestation 0 Eighteen To Twenty Week Garrett Update Ultra Sound Date Fundal Height At Umbil Quickening Date Ultra Sound Latest Weeks Gestation Final Garrett Confirmed By Final Garrett Confirmed Date Final Garrett Date Ultra Sound Latest Days Gestation 0 0 Menstrual History Last Menstrual Date Menses Monthly On Bcp Conception Prior Menses Frequency Hcg Plus Date Menarche Onset Age Delivery Information Delivery Date Delivery Type Labor Anesthesia Weeks Gestation Incision Type Labor Labor Length Hrs Delivered By Post Complications Tubal Sterilization Discharge Date Comments 04/2017 induced Discharge Information Feeding Method Contraceptive Method Maternal HG B and HCT Levels
== END 2025-03-29 10:38 | disposition home or self-care (01) ==
LOC: ANHIMG 10:38
PROVIDERS: PCP Family Medicine; Visit Provider Student in an Organized Health Care Education/Training Program
DX: Z12.31 Encounter for screening mammogram for malignant neoplasm of breast (principal); R92.8 Other abnormal and inconclusive findings on diagnostic imaging of breast
CPT/HCPCS: 77063; 77067

== ENCOUNTER 2025-04-23 08:24 | Outpatient (CLI) | payer BC, SELFPAY ==
--- NOTE | ~2025-04-23 | MMUS_ITS ---
EXAMINATION: MM diagnostic sherrell RT w salima, US breast RT limited HISTORY: Inconclusive mammogram TECHNIQUE: Additional 3-D tomosynthesis images of the right breast were performed and synthetic 2-D i mages were generated. CAD analysis was submitted and interpreted. High resolution Limited right breas t ultrasound was performed. COMPARISON: Comparison to multiple prior studies sequentially, with oldest reviewed study dated 07/24. BREAST PARENCHYMAL COMPOSITION: Not dense: There are scattered areas of fibroglandular density. FINDINGS: MAMMOGRAPHIC FINDINGS: New mass lower inner quadrant of the right breast, middle third with central areas of lucency, most l ikely benign intramammary lymph node. ULTRASOUND: Limited right breast ultrasound: Normal heterogeneous echotexture without focal solid or cystic mass. IMPRESSION: 1. Probable benign right breast mass lower inner quadrant. 2. Recommend 6 month follow-up diagnostic right mammogram BI-RADS category 3, probably benign findings. Reviewed, dictated and finalized at location [] IMPRESSION: 1. Probable benign right breast mass lower inner quadrant. 2. Recommend 6 month follow-up diagnostic right mammogram BI-RADS category 3, probably benign findings.
== END 2025-04-23 08:25 | disposition home or self-care (01) ==
PROVIDERS: PCP Family Medicine; Visit Provider Student in an Organized Health Care Education/Training Program
DX: R92.2 Inconclusive mammogram (principal)
CPT/HCPCS: 76642; 77061; 77065; G0279